=== PATIENT | female | born 1985 | race Caucasian/White ===

== ENCOUNTER 2023-06-01 19:54 | Outpatient (REF) | payer BC, SELFPAY ==
[2023-06-06 10:11] LABS: Age Gdln ACOG Testing Note (.); HPV Aptima Negative (Negative); IGP, Aptima HPV, rfx 16/18,45 Note (.)
== END 2023-06-01 19:55 | disposition home or self-care (01) ==
LOC: LAB 19:54
PROVIDERS: Visit Provider Obstetrics & Gynecology
DX: Z01.419 Encounter for gynecological examination (general) (routine) without abnormal findings (principal)
CPT/HCPCS: 87624; G0145

== ENCOUNTER 2023-10-20 07:50 | Outpatient (OUT) | payer BC, SELFPAY ==
--- OUTSIDE RECORDS SUMMARY | 2023-10-20 07:51 | XMS_ITS | CCD ---
Author Organization [facility] Care Team Providers Care Field Crop Farmworker Name Role Phone Shayne Juarez Unavailable Jared Pretty Unavailable Shayne Juarez Admitting Unavailable Shayne Juarez Attending Klaus Kenny Primary Care Unavailable EDGARDO, DR CASILLAS Primary Care Unavailable LEATHA, DR ELAINE Crockett Attending Unavailable LEATHA, DR ELAINE Crockett Consulting Unavailable LEATHA, DR ELAINE Crockett Admitting Unavailable BRENNAN MERIDA Attending Unavailable Sol Briseno MD Primary Care Provider Medications Current Medications Medication Drug Class(es) Dates Sig (Normalized) Sig (Original) 24 hr metFORMIN hydrochloride 500 mg extended release oral tablet (3 sources) Biguanide Start: 04-05-2023 take 1 tablet by mouth once daily metFORMIN XR (Glucophage-XR) 500 MG 24 hr tablet Indications: Metabolic syndrome TAKE 1 TABLET BY MOUTH EVERY DAY FOR 30 DAYS 90 tablet 4 04/05/2023 Active sarecycline 100 mg oral tablet (4 sources) Seysara 100 MG a s directed Orally for acne Active spironolactone 50 mg oral tablet (4 sources) Aldosterone Antagonist take 1 tablet by mouth every twenty-four hours Spironolactone 50 MG 1 tablet Orally Once a day Active Completed/Discontinued Medications Medication Drug Class(es) Dates Sig (Normalized) Sig (Original) phentermine hydrochloride 37.5 mg oral tablet (7 sources) Sympathomimetic Amine Anorectic Start: 11-12-2022 End: 06-24-2023 take 1 tablet by mouth before mealtime phentermine (Adipex-P) 37.5 MG tablet Indications: Metabolic syndrome Take 1 tablet (37.5 mg) by mouth in the morning. Take before meals. 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] 09-30-2023 Chronic Other nutritional; endocrine; and metabolic disorders (1 source) Abnormal weight gain Episodic Other nutritional; endocrine; and metabolic disorders (1 source) Overweight; Translations: [Overweight] 09-30-2023 Episodic Other nutritional; endocrine; and metabolic disorders (1 source) Overweight; Translations: [Overweight] 09-30-2023 Episodic Other screening for suspected conditions (not mental disorders or infectious disease) (2 sources) Patient encounter status; Translations: [Encounter for screening mammogram for malignant neoplasm of breast] 09-30-2023 Episodic Residual codes; unclassified (4 sources) Difficulty sleeping ; Translations: [Sleep disorder, unspecified] Episodic Residual codes; unclassified (1 source) Sleep disorder, unspecified Episodic Unclassified (1 source) Dietary counseling and surveillance; Translations: [Dietary counseling and surveillance] Onset: 02-19-2022 Past or Other Problems Problem Classification Problem Date Documented Da te Episodic/Chronic Other nutritional; endocrine; and metabolic disorders (3 sources) Metabolic syndrome X; Translations: [Metabolic syndrome] Onset: 05-25-2023 Resolved: 05-25-2023 05-25-2023 Chronic Results Test Name Value Interpretation Reference Range Facil ity IGP,APTIMA HPV,AGE GDLNon AGE GDLN ACOG TESTING Note . [facility] Comment on above: TESTS RESULT FLAG UNITS REF RANGE LAB Clinician Provided Cytology Information Source.............Cervix;Endocervix No. of containers..01 ThinPrep Vial Age Algo ACOG Josefina... 28 FLAG LEGEND: L-Low Normal,H-High Normal,LL-Alert Low,HH-Alert High <-Panic Low,>-Panic High,A-Abnormal,AA-Critical Abnormal Performed at: 01 = [facility] [address] Saundra Crocker MD, HPV APTIMA Negative Negative [facility] Comment on above: This nucleic acid amplification test det ects fourteen high- risk HPV types (16,18,31,33,35,39,45,51,52,56,58,59,66,68) without differentiation. Performed at: = - [facility] [id number] Resizer Operator: Saundra Crocker MD, Phone: [phone] Performed at: [facility] [address] [place] [id number] Resizer Operator: Alfonso Kerns MD, Phone: [phone] IGP, APTIMA HPV, RFX 16/18,45 Note . [facility] Comment on above: TESTS RESULT FLAG UNITS REF RANGE LAB DIAGNOSIS: 02 NEGATIVE FOR INTRAEPITHELIAL LESION OR MALIGNANCY. Specimen adequacy: 02 Satisfactory for evaluation. Endocervical and/or squamous metaplastic cells (endocervical component) are present. Performed by: Danni Tatum, Director Of Math (ASC) . 02 Note: Note 03 The Pap smear is a screening test designed to aid in the detection of premalignant and malignant conditions of the uterine cervix. It is not a diagnostic procedure and should not be used as the sole means of detecting cervical cancer. Both false-positive and false-negative reports do occur. Test Methodology: Note 03 This liquid based ThinPrep(R) pap test was screened with the use of an image guided system. HPV Genotype Reflex Note 02 Criteria not met, HPV Genotype not performed. FLAG LEGEND: L-Low Normal,H-High Normal,LL-Alert Low,HH-Alert High <-Panic Low,>-Panic High,A-Abnormal,AA-Critical Abnormal Performed at: 02 [facility] [address] [place] [address] Alfonso Kerns MD, 03 WB [facility] [address] [address] Saundra Crocker MD, BRUSH-SPATULA CERVIX ENDOCERVIX [facility] Vital Signs Date Time Vital Sign Value Performing Clinician Facility 09-30-2023 09:47-0400 Body height 182.[address] [facility] 09-30-2023 09:47-0400 Body mass index (BMI) [Ratio] 27.6 kg/m2 [facility] 09-30-2023 09:47-0400 Body weight 92.[address] [facility] 09-30-2023 09:47-0400 Diastolic blood pressure 77 mm[Hg] [facility] 09-30-2023 09:47-0400 Heart rate 78 /min [facility] 09-30-2023 09:47-0400 Respiratory rate 12 /min [facility] 09-30-2023 09:47-0400 Systolic blood pressure 117 mm[Hg] [facility] 06-01-2023 13:34-0500 Body weight 88.45 kg Brennan Fuad DO Work Phone: [facility] 06-01-2023 13:34-0500 Diastolic blood pressure 68 mm[Hg] Brennan Fuad DO Work Phone: [facility] 06-01-2023 13:34-0500 Systolic blood pressure 110 mm[Hg] Brennan Fuad DO Work Phone: [facility] 02-19-2022 14:00-0400 Body height 177.8 cm Shayne Juarez Other [facility] Other 02-19-2022 14:00-0400 Body mass index (BMI) [Ratio] 29.97 kg/m2 Shayne Juarez Other [facility] 02-19-2022 14:00-0400 Body weight 94.76 kg Shayne Juarez Other [facility] Other 02-19-2022 14:00-0400 Diastolic blood pressure 84 mm[Hg] Shayne Juarez Other [facility] Other 02-19-2022 14:00-0400 Respiratory rate 18 /min Shayne Juarez Other [facility] Other 02-19-2022 14:00-0400 SaO2% (BldA) [Mass fraction] 98 % Shayne Juarez Other [facility] Other 02-19-2022 14:00-0400 Systolic blood pressure 119 mm[Hg] Shayne Juarez Other [facility] Other Encounters Encounter Date Encounter Type Care Provider Facility Start: 09-30-2023 End: 09-30-2023 ambulatory [facility] Work Phone: Start: 09-30-2023 End: 09-30-2023 Encounter for general adult medical examination without abnormal findings [facility] Start: 09-30-2023 End: 09-30-2023 Patient encounter procedure [facility] Work Phone: Start: 06-01-2023 End: 06-01-2023 ambulatory BRENNAN FUAD Not Available Start: 06-01-2023 [facility] Result Encounter Brennan Fuad DO Work Phone: [facility] Unsolicited Start: 06-01-2023 [facility] Result Encounter Brennan Fuad DO Work Phone: [facility] Unsolicited Start: 06-01-2023 End: 06-01-2023 Patient encounter procedure Brennan Fuad DO Work Phone: [facility] Start: 06-01-2023 End: 06-01-2023 Periodic preventive med est patient 18-39 yrs Brennan Fuad DO Work Phone: [facility] Comment on above: Well woman exam with routine gynecological exam Start: 03-23-2022 End: 03-23-2022 ambulatory Pretty Joset Other [facility] Other Start: 03-23-2022 Telephone encounter Pretty Joseroddy [facility] Start: 03-03-2022 End: 03-03-2022 ambulatory Pretty Garciat Other [facility] Other Start: 03-03-2022 Telephone encounter Pretty [facility] Start: 02-19-2022 End: 02-19-2022 ambulatory Shayne Juarez [facility] Other Start: 02-19-2022 Nutrition therapy Shayne Juarez [facility] Start: 02-17-2022 End: 02-17-2022 ambulatory Pretty Coleman Other [facility] Other Start: 02-17-2022 Encounter by dena Coleman [facility] Start: 10-30-2021 End: 03-13-[address] KLAUS REYNOSO Facility:[facility]1 Procedures Date Procedure Procedure Detail Performing Clinician Start: 06-01-2023 IGP,APTIMA HPV,AGE GDLN Brennan Merida DO Work Phone: Plan of Treatment Date Care Activity Detail Author Start: 01-01-2023 Influenza vaccination Influenza Vacc ine (#1) [facility] Start: 09-24-2013 Screening for malign ant neoplasm of cervix [facility] Start: 09-24-2004 Screening for malign ant neoplasm of cervix Pap Smear [facility] Comprehensive metabo lic 2000 panel - Serum or Plasma [facility] Cytology Cervical or vaginal smear or scraping study Pap Smear Pathology and Cytology Routine Well woman exam with routine gynecological exam Ordered: 06/01/2023 [facility] Work Phone: Comment on above: Ordered: 06/01/2023 Human papilloma viru s DNA [Presence] in Unspecified specimen by Probe with amplification HPV DNA probe, amplified Microbiology Routine Well woman exam with routine gynecological exam Ordered: 06/01/2023 [facility] Comment on above: Ordered: 06/01/2023 MG Breast - bilatera l Screening [facility] Immunizations Immunization Date Immunization Notes Care Provider Tawny rahman 02-24-2007 influenza virus vacc ine, unspecified formulation Brennan Merida DO Work Phone: [facility] Payers Date Payer Category Payer Unknown [id number] 2022 Unknown BCBS BCBS xxxxxx [id number] 2022-Present [phone] [address] [place] [address] [id number] 2022 Unknown [id number] 1985 Unknown [id number] 1985 Unknown [id number] 1961 Self-pay Unknown [id number] Social History Date Type Detail Facility Unknown if ever smoked [facility] Other Sex Assigned At Sex Assigned At Bir th [facility] Other Tobacco smoking stat [facility] Tobacco smoking consumption unknown [facility] Start: 1985 Sex Assigned At Female [facility] Start: 05-31-2023 Gender identity Identifies as female gender (finding) [facility] Start: 05-31-2023 Sexual orientation Heterosexual (finding) [facility] History of Present illness Narrative 06-01-2023 Rosy Santana LPN - 06/01/2023 1:00 PM EST Note Date & Type Note Facility 06-01-2023 History of Presen t illness Narrative Reason for Appointment: Patient ID: Marge Enriquez is a 37 y.o. female who presents for Gynecologic Exam Patient presents today for Annual Exam appointment. Current Medications: has a current medication list which includes the following prescription(s): metformin xr and phentermine. Medical History: Active Ambulatory Problems Diagnosis Date Noted No Active Ambulatory Problems Resolved Ambulatory Problems Diagnosis Date Noted Metabolic syndrome 05/25/2023 Past Medical History: Diagnosis Date Seasonal allergies No family history on file. Social History Tobacco Use Smoking status: Not on file Smokeless tobacco: Not on file Substance Use Topics Alcohol use: Not on file Drug use: Not on file Past Surgical History: Procedure Laterality Date SECTION, LOW TRANSVERSE SECTION, LOW TRANSVERSE SECTION, LOW TRANSVERSE TUBAL LIGATION No Known Allergies Review of Systems: Review of Systems Constitutional: Negative. HENT: Negative. Eyes: Negative. Respiratory: Negative. Cardiovascular: Negative. Gastrointestinal: Negative. Genitourinary: Negative. Musculoskeletal: Negative. Skin: Negative. Neurological: Negative. All other systems reviewed and are negative. Hematological: Negative. Endocrine: Negative. Allergic/Immunologic: Negative. Objective Physical Exam Constitutional: Appearance: Normal appearance. She is well-developed. Genitourinary: Vulva normal. Breasts: Breasts are soft. Right: Normal. Left: Normal. Cardiovascular: Rate and Rhythm: Normal rate and regular rhythm. Pulmonary: Effort: Pulmonary effort is normal. Breath sounds: Normal breath sounds. Abdominal: General: Bowel sounds are normal. There is no distension. Palpations: Abdomen is soft. Tenderness: There is no abdominal tenderness. There is no guarding or rebound. Musculoskeletal: General: No swelling. Normal range of motion. Right lower leg: No edema. Left lower leg: No edema. Neurological: Mental Status: She is alert and oriented to person, place, and time. Skin: General: Skin is warm and dry. Psychiatric: Mood and Affect: Mood normal. Behavior: Behavior normal. Vitals and nursing note reviewed. Exam conducted with a exhaust and muffler fitter present. Vitals: There is no height or weight on file to calculate BMI. BP: 110/68 Patient's last menstrual period was 05/19/2023. Assessment/Plan Encounter Diagnosis Name Primary? Well woman exam with routine gynecological exam Pt presents for annual exam. Pt doing well with no complaints. Pap obtained without difficulty. Pt to return in one year for annual unless needed sooner. Documented by Rosy Santana LPN on behalf of: Brennan Merida DO documented in this encounter [facility] Evaluation note 02-19-2022 Note Date & Type Note Facility 02-19-2022 Evaluation note Encounter Date Diagnosis Assessment Notes Jan, Abnormal weight gain (ICD-10 - R63.5) Jan, GERD (gastroesophagea l reflux disease) (ICD-10 - K21.9) Jan, Sleep difficulties (ICD-10 - G47.9) [facility] Other Evaluation note Note Date & Type Note Facility Evaluation note No Information [facility] Other Evaluation note Note Date & Type Note Facility Evaluation note Diagnosis Well woman exam with routine gynecological exam Routine gynecological examination documented in this encounter [facility] Evaluation note Note Date & Type Note Facility Evaluation note Diagnosis Onset Date Bruxism, sleep-related acute Overweight acute Screening mammogram for breast cancer acute Wellness examination noneact flaca [facility] Work Phone: History general Narrative - Reported Note Date & Type Note Facility History general Narrative - Reported Type Surgical History C section x3 Hospitalization History see above [facility] Other Summary Purpose Family History Relationship Condition Age at Onset Recorded Date/T eleanor father Diabetes mellitus Unknown Hypertension Unknown Not Specified Hypertension Unknown Advance Directives Advance Directive Response Recorded Date/ Time Advance Directives No September 06, 2023 1:26pm Chief Complaint and Reason for Visit Chief Complaint left ear jaw pain Reason for Visit Bruxism, sleep-relat ed Overweight Screening mammogram for breast cancer Wellness examination Additional Source Comments REASON FOR VISIT (unrecogniz ed section and content) Reason Comments Gynecologic Exam INFORMATION SOURCE (unrecogn ized section and content) DATE CREATED AUTHOR 03/09/[address] [facility] DATE CREATED AUTHOR AUTHOR'S ORGANIZ ATION 03/13/2022 [facility] DATE CREATED AUTHOR AUTHOR'S ORGANIZ ATION 06/02/2023 [facility] Specialists EPIC Care Teams (unrecognized sec tion and content) Field Crop Farmworker Relationship Specialty Start Date End Date Sol Briseno MD [address] [place] [id number] PCP - General Family Medicine 06/01/23 Field Crop Farmworker Relationship Specialty Start Date End Date Sol Briseno MD [address] [place] [address] PCP - General Family Medicine 06/01/23 Team Status: Active Member Role Status Dates Klaus Reynoso DO Primary Care Provider Active Team Status: Inactive Member Role Status Dates Klaus Reynoso DO Primary Care Provide r, Attending Provider Active Start: September 30, 2023 End: September 30, 2023 Goals (unrecognized section and content) Goals may be documented in a n alternate section FOR RECORDS PERTAINING TO PATIENTS WHO ARE OR HAVE BEEN ENROLLED IN A CHEMICAL DEPENDENCY/SUBSTANCEABUSE PROGRAM, SOME INFORMATION MAY BE OMITTED. This clinical summary was aggregated from multiple sources. Caution should be exercised in using it in the provision of clinical care. This summary normalizes information from multiple sources, and as a consequence, information in this document may materially change the coding, format and clinical context of patient data. In addition, data may be omitted in some cases. CLINICAL DECISIONS SHOULD BE BASED ON THE PRIMARY CLINICAL RECORDS. [facility] [employer] [facility]. provides no warranty or guarantee of the accuracy or completeness of information in this document.
--- NOTE | 2023-10-20 07:53 | MM_ITS ---
Patient Name: ROSINA LAWRENCE MR#: [id number] : 1985 Exam Date: 10/20/2023 Ordering Doctor: DR Klaus Wick D.O. RADIOLOGY REPORT PROCEDURE: MM TOMOSYNTHESIS SCREENING BI COMPARISON: MG MAMM SCREEN ORLY W CAD, 03/09/2019. INDICATIONS: Screening Calculator Name NCI Breast Cancer Risk Assessment Tool 5 Year Breast Cancer Risk Not Reported. Lifetime Breast Cancer Risk Not Reported. Personal Breast Cancer No Personal Ovarian Cancer No Treatments None Family Cancers None LOCATION: [facility] BREAST COMPOSITION: The breasts are extremely dense, which lowers the sensitivity of mammography. FINDINGS: DIAGNOSTIC CATEGORY 1--NEGATIVE. RIGHT BREAST: No significant suspicious finding. No significant change has occurred. LEFT BREAST: No significant suspicious finding. No significant change has occurred. RECOMMENDATIONS: ROUTINE MAMMOGRAM AND CLINICAL EVALUATION IN 12 MONTHS. PLEASE NOTE: A NORMAL MAMMOGRAM DOES NOT EXCLUDE THE POSSIBILITY OF BREAST CANCER. A CLINICALLY SUSPICIOUS PALPABLE LUMP SHOULD BE BIOPSIED. Dictated by: Albaro Poe M.D. on 10/21/2023 at 09:02 Approved by: Albaro Poe M.D. on 10/21/2023 at 09:06
[2023-10-20 08:32] LABS: Basophils Absolute Auto 0.1 10^3/uL (0.0-0.1); Eosinophils Absolute Auto 0.1 10^3/uL (0.0-0.7); Hematocrit 41.6 % (36.0-48.0); Hemoglobin 13.6 g/dL (12.0-16.0); Lymphocytes Absolute Auto 1.3 10^3/uL (1.2-3.8); Lymphocytes Percent Auto 24.3 % (20.5-60.0); Mean Corpuscular HGB Conc 32.7 g/dL (29.9-35.2); Mean Corpuscular Hemoglobin 29.8 pg (26.7-34.0); Mean Corpuscular Volume 91.2 fL (81.0-99.0); Mean Platelet Volume 10.1 fL (9.5-13.5); Monocytes Absolute Auto 0.5 10^3/uL (0.3-0.8); Monocytes Percent Auto 8.9 % (1.7-12.0); Neutrophils Absolute Auto 3.3 10^3/uL (1.4-6.5); Neutrophils Percent Auto 64.8 % (43.0-75.0); Platelet Count 213 10^3/uL (150-450); Red Blood Count 4.56 10^6/uL (4.20-5.40); Red Cell Distribution Width 12.9 % (11.0-15.0); White Blood Count 5.2 10^3/uL (4.0-11.0)
[2023-10-20 08:56] LABS: Estimated Average Glucose 100 mg/dL; Glycohemoglobin A1C 5.1 % (4.5-6.2)
[2023-10-20 09:22] LABS: Alanine Aminotransferase 21 U/L (14-59); Albumin Globulin Ratio 1.1; Albumin Level 3.7 g/dL (3.4-5.0); Alkaline Phosphatase 41 U/L (46-116); Anion Gap 10.3; Aspartate Amino Transferase 13 U/L (15-37); BUN Creatinine Ratio 10.7; Bilirubin Total 0.9 mg/dL (0.2-1.0); Calcium 8.5 mg/dL (8.5-10.1); Carbon Dioxide 29.6 mmol/L (21.0-32.0); Chloride 103 mmol/L (98-107); Chol HDL Ratio 1.4; Cholesterol 137 mg/dL (<=200); Estimated GFR (African America >60 (>=60); Estimated GFR (Non-African Ame >60 (>=60); Globulin 3.4 g/dL; Glucose 89 mg/dL (74-106); HDL Cholesterol 101 mg/dL (40-60); Potassium 3.9 mmol/L (3.5-5.1); Sodium 139 mmol/L (136-145); Thyroid Stimulating Hormone 0.838 uIU/mL (0.358-3.740); Total Protein 7.1 g/dL (6.4-8.2); Triglycerides 44 mg/dL (<=150); VLDL CHOLESTEROL 8.8 mg/dL
== END 2023-10-20 07:51 | disposition home or self-care (01) ==
LOC: MAMMO 07:50
PROVIDERS: PCP Internal Medicine; Visit Provider Internal Medicine
DX: Z00.00 Encounter for general adult medical examination without abnormal findings (principal); Z12.31 Encounter for screening mammogram for malignant neoplasm of breast
CPT/HCPCS: 36415; 77063; 77067; 80053; 80061; 83036; 84443; 85025

== ENCOUNTER 2024-11-29 07:58 | Outpatient (OUT) | payer BC, SELFPAY ==
--- NOTE | 2024-11-29 08:00 | MM_ITS ---
Patient Name: ROSINA LAWRENCE MR#: [id number] : 1985 Exam Date: 11/29/2024 Ordering Doctor: DR BRENNAN LENNON . RADIOLOGY REPORT PROCEDURE: MM TOMOSYNTHESIS SCREENING BI COMPARISON: MM TOMOSYNTHESIS SCREENING BI, 10/20/2023. MG MAMM SCREEN ORLY W CAD, 03/09/2019. INDICATIONS: screening for malignant neoplasm of breast Calculator Name NCI Breast Cancer Risk Assessment Tool 5 Year Breast Cancer Risk Not Reported. Lifetime Breast Cancer Risk Not Reported. Personal Breast Cancer No Personal Ovarian Cancer No Treatments None Family Cancers None LOCATION: [facility] BREAST COMPOSITION: The breasts are heterogeneously dense, which may obscure small masses. FINDINGS: DIAGNOSTIC CATEGORY 1--NEGATIVE. RIGHT BREAST: No significant suspicious finding. LEFT BREAST: No significant suspicious finding. RECOMMENDATIONS: ROUTINE MAMMOGRAM AND CLINICAL EVALUATION IN 12 MONTHS. PLEASE NOTE: A NORMAL MAMMOGRAM DOES NOT EXCLUDE THE POSSIBILITY OF BREAST CANCER. A CLINICALLY SUSPICIOUS PALPABLE LUMP SHOULD BE BIOPSIED. Dictated by: Antolin Navarro DO on 11/29/2024 at 16:05 Approved by: Antolin Navarro DO on 11/29/2024 at 16:16
--- OUTSIDE RECORDS SUMMARY | 2024-11-29 08:00 | XMS_ITS | Patient Health Record ---
Author Organization [facility] Address [address] [place] [address] Care Team Providers Care Flat Screen Worker Name Role Phone Albaro Wilson Unavailable [phone] Allergies No Known Allergies Reason For Referral No Information Medications Medication SIG (Take, Route, Frequency, Duration) Notes Start Date End Date Status Tylenol Active ZyrTEC Active Motrin IB Active Social History Tobacco Use: Social History Observation Description Date Details (start date - stop date) Never Smoker NA - NA AUDIT-C (Standard) Question Answer Notes Did you have a drink contain ing alcohol in the past year? Yes How often did you have a dri nk containing alcohol in the past year? Monthly or less (1 point) How many drinks did you have on a typical day when you were drinking in the past year? 1 or 2 drinks (0 point) How often did you have six o r more drinks on one occasion in the past year? 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 She will continue symptomatic treatment with [id number] NSAIDs. She will follow-up here on an as-needed basis. Import medication Plan Of Treatment Pending Test Test Name Order Date SCC- HIP W/ PELVIS, LEFT [id number] 5 Insurance Providers Payer Name Payer Address Payer Phone Subscriber Number Group Number Insured Name Patient Relationship to Insured Coverage Start Date Coverage End Date [facility] [address] [place] [address] [id number] ROSINA LAWRENCE Self - patient is the insured 5 Medical (General) History Medical History History ICD Code Asthma/COPD: yes Healthcare worker Surgical History Surgery Date(Month/Year) Colonoscopy 03/2019 C section x 3 07/2007, 04/2010, 07/02 016
--- OUTSIDE RECORDS SUMMARY | 2024-11-29 08:00 | XMS_ITS | Clinical Summary ---
Author Organization [facility] Address [address] [place] [address] Care Team Providers Care Surgical Assistant Name Role Phone Sol Briseno MD Primary Care Provider [phone] Allergies No known active allergies Medications metFORMIN XR (Glucophage-XR) 500 MG 24 hr tabletIndication s:Metabolic syndrome TAKE 1 TABLET BY MOUTH EVERY DAY FOR 30 DAYS 90 tablet 4 04/05/2023 Active phentermine (Adipex-P) 37.5 MG tabletIndication s:Metabolic syndrome,Encount er for weight management Take 1 tablet (37.5 mg) by mouth in the morning. Take before meals. 30 tablet 05/25/2023 Active Resolved Problems Problem Noted Date Diagnosed Date Resolved Date Metabolic syndrome 05/25/2023 Social History Tobacco Use Types Packs/Day Years Used Date Smoking Tobacco: Never Assessed Comments Unknown Sex and Gender Information Value Date Recorded Sex Assigned at Female 05/31/2023 10:43 PM EST Legal Sex Female 6:54 PM EDT Gender Identity Female 05/31/2023 10:43 PM EST Sexual Orientation Straight 05/31/2023 10 :43 PM EST Last Filed Vital Signs Vital Sign Reading Time Taken Comments Blood Pressure 110/68 06/01/2023 1:34 PM EST Pulse - - Temperature - - Respiratory Rate - - Oxygen Saturation - - Inhaled Oxygen Concentration - - Weight 88.5 kg (195 lb) 06/01/2023 1:34 PM EST Height - - Body Mass Index - - Plan of Treatment Health Maintenance Due Date Last Done Comments Pap Smear 09/24/2004 Cervical Cancer Screening 09/24/2013 HPV/Cotest 09/24/2013 Mammogram 2023 Influenza Vaccine (#1) 2025 02/24/2007 Insurance BCBS Care Teams Surgical Assistant Relationship Specialty Start Date End Date Sol Briseno MD PCP - General Family Medicine 06/01/23
--- OUTSIDE RECORDS SUMMARY | 2024-11-29 08:00 | XMS_ITS | Clinical Summary ---
Author Organization [employer] [facility] Address [id number] [place] [address] Care Team Providers Care Spiral Machine Operator Name Role Phone Klaus Wick DO Primary Care Provider [phone] Allergies No known active allergies Medications Lactobac no.41/Bifidobac t no.7 (PROBIOTIC-10 ORAL) Take by mouth daily. Active herbal complex no.205 (TOTAL BODY CLEANSE ORAL) Take by mouth as needed. Active phentermine (ADIPEX-P) 37.5 mg tablet Take 37.5 mg by mouth every morning before breakfast. Active Active Problems No known active problems Family History Medical History Relation Name Comments Diabetes Father Hypertension Father Testicular cancer Maternal Grandfather Hypertension Mother Relation Name Status Comments Father Alive Maternal Grandfather Alive Mother Alive Social History Tobacco Use Types Packs/Day Years Used Date Smoking Tobacco: Never Smokeless Tobacco: Never Alcohol Use Standard Drinks/Week Comments Yes 0 (1 standard drink = 0.6 oz pur e alcohol) SOCIAL Childcare Answer Date Recorded Childcare Unknown 10/12/2018 Employment Answer Date Recorded Employment Unknown 10/12/2018 Purpose - Life Answer Date Recorded Purpose and direction in life Unknown Comments Unknown Sex and Gender Information Value Date Recorded Sex Assigned at Not on file Legal Sex Female 11:23 AM EDT Gender Identity Not on file Sexual Orientation Not on file Last Filed Vital Signs Vital Sign Reading Time Taken Comments Blood Pressure 124/84 04/01/2018 8:51 AM EST Pulse - - Temperature - - Respiratory Rate - - Oxygen Saturation - - Inhaled Oxygen Concentration - - Weight 91.6 kg (202 lb) 04/01/2018 8:51 AM EST Height 182.9 cm (6') 04/01/2018 8:51 AM EST Body Mass Index 27.4 04/01/2018 8:51 AM EST Plan of Treatment Health Maintenance Due Date Last Done Comments Depression Screening 1995 Tobacco Screening 1995 Adult BMI Screening 09/24/2001 DTaP,Tdap and Td Vaccines (1 - Tdap) 09/24/2002 Pap Smear 09/24/2004 Influenza Vaccine 01/01/2025 Medical Devices Not on file Insurance [employer] Care Teams Spiral Machine Operator Relationship Specialty Start Date End Date Klaus Wick DO [address] [place] [address] PCP - General 02/09/18
--- OUTSIDE RECORDS SUMMARY | 2024-11-29 08:02 | XMS_ITS | CCD ---
Author Organization [facility] Care Team Providers Care Biology Specimen Technician Name Role Phone Shayne Juarez Unavailable Jared Pretty Unavailable Shyane Juarez Admitting Unavailable Shayne Juarez Attending Klaus Kenny Primary Care Unavailable EDGARDO, DR CASILLAS Primary Care Unavailable LEATHA, DR ELAINE Crockett Attending Unavailable LEATHA, DR ELAINE Crockett Consulting Unavailable LEATHA, DR ELAINE Crockett Admitting Unavailable BRENNAN MERIDA Attending Unavailable Sol Briseno MD Primary Care Provider [phone] Medications Current Medications Medication Drug Class(es) Dates [...] Low,>-Panic High,A-Abnormal,AA-Critical Abnormal Performed at: 01 = [facility] [address] Saundra Crocker MD, HPV APTIMA Negative Negative [facility] Comment on above: This nucleic acid amplification test det ects fourteen high- risk HPV types (16,18,31,33,35,39,45,51,52,56,58,59,66,68) without differentiation. Performed at: = - [facility] [id number] Folder Seamer Automatic: Saundra Crocker MD, Phone: [phone] Performed at: [facility] [address] [place] [id number] Folder Seamer Automatic: Alfonso Kerns MD, Phone: [phone] IGP, APTIMA HPV, RFX 16/18,[address] . [facility] Comment on above: TESTS RESULT FLAG UNITS REF RANGE LAB DIAGNOSIS: 02 NEGATIVE FOR INTRAEPITHELIAL LESION OR MALIGNANCY. Specimen adequacy: 02 Satisfactory for evaluation. Endocervical and/or squamous metaplastic cells (endocervical component) are present. Performed by: Danni Tatum, Live [employer] (ASC) . 02 Note: Note 03 The [...] High,A-Abnormal,AA-Critical Abnormal Performed at: 02 [facility] [address] [place] [address] Alfonso Kerns MD, 03 WB [facility] [address] [address] Saundra Crocker MD, BRUSH-SPATULA [facility]IX [facility] Vital Signs Date Time Vital Sign Value Performing Clinician Facility 09-30-2023 09:47-0400 Body height 182.88 cm [facility] 09-30-2023 09:47-0400 Body mass index (BMI) [Ratio] 27.6 kg/m2 [facility] 09-30-2023 09:47-0400 Body weight 92.58 kg [facility] 09-30-2023 09:47-0400 Diastolic blood pressure 77 mm[Hg] [facility] 09-30-2023 09:47-0400 Heart rate 78 /min [facility] 09-30-2023 09:47-0400 Respiratory rate 12 /min [facility] 09-30-2023 09:47-0400 Systolic blood pressure 117 mm[Hg] [facility] 06-01-2023 13:34-0500 Body weight 88.45 kg Brennan Fuad DO Work Phone: [facility] 06-01-2023 13:34-0500 Diastolic blood pressure 68 mm[Hg] Brennan Fuad DO Work Phone: [facility] 06-01-2023 13:34-0500 Systolic blood pressure 110 mm[Hg] Brennan Fuad DO Work Phone: [facility] 02-19-2022 14:00-0400 Body height 177.8 cm Shayne Juarez Other [facility] Other 02-19-2022 14:00-0400 Body mass index (BMI) [Ratio] 29.97 kg/m2 Shayne Juarez Other [facility] Other 02-19-2022 14:00-0400 Body weight 94.76 kg Shayne Juarez Other [facility] Other 02-19-2022 14:00-0400 Diastolic blood pressure 84 mm[Hg] Shayne Juarez Other [facility] Other 02-19-2022 14:00-0400 Respiratory rate 18 /min Shayne Juarez Other [facility] Other 02-19-2022 14:00-0400 SaO2% (BldA) [Mass fraction] 98 % Shayne Juarez Other [facility] Other 02-19-2022 14:00-0400 Systolic blood pressure 119 mm[Hg] Shayne Juarez Other [facility] Other Encounters Encounter Date Encounter Type Care Provider Facility Start: 09-30-2023 End: 09-30-2023 ambulatory [facility] Work Phone: Start: 09-30-2023 End: 09-30-2023 Encounter for general adult medical examination without abnormal findings [facility] Start: 09-30-2023 End: 09-30-2023 Patient encounter procedure [facility] Physician [facility] Work Phone: Start: 06-01-2023 End: [...] 03-23-2022 End: 03-23-2022 ambulatory Pretty Joset Other [facility] Other Start: 03-23-2022 Telephone encounter Pretty Joseroddy Alyssa [facility] Start: 03-03-2022 End: 03-03-2022 ambulatory Pretty Garciat Other [facility] Other Start: 03-03-2022 Telephone encounter Pretty Shah [facility] Start: 02-19-2022 End: 02-19-2022 ambulatory Shayne Juarez [facility] Other Start: 02-19-2022 Nutrition therapy Shayne Juarez [facility] Start: 02-17-2022 End: 02-17-2022 ambulatory Pretty Coleman Other [facility] Other Start: 02-17-2022 Encounter by dena Coleman [facility] Start: 10-30-2021 End: 03-13-[address] KLAUS REYNOSO Facility:[facility]1 Procedures Date Procedure Procedure Detail Performing Clinician Start: 06-01-2023 IGP,APTIMA HPV,AGE GDLN Brennan Merida DO Work Phone: Plan of Treatment Date Care Activity Detail Author Start: 01-01-2023 Influenza vaccination Influenza Vacc ine (#1) [facility] Start: 09-24-2013 Screening for malign ant neoplasm of cervix [facility] Start: 09-24-2004 Screening for malign ant neoplasm of cervix Pap Smear [facility] Comprehensive metabo lic 2000 panel - Serum or Plasma [facility] Cytology Cervical or vaginal smear or scraping study Pap Smear Pathology and Cytology Routine Well woman exam with routine gynecological exam Ordered: 06/01/[address] [facility] Work Phone: Comment on above: Ordered: 06/01/2023 Human papilloma viru s DNA [Presence] in Unspecified specimen by Probe with amplification HPV DNA probe, amplified Microbiology Routine Well woman exam with routine gynecological exam Ordered: 06/01/[address] [facility] Comment on above: Ordered: 06/01/2023 MG Breast - bilatera l Screening [facility] Immunizations Immunization Date Immunization Notes Care Provider Tawny rahman 02-24-2007 influenza virus vacc ine, unspecified formulation Brennan Merida DO Work Phone: [facility] Payers Date Payer Category Payer Unknown [id number] 2022 Unknown BCBS BCBS [id number] 2022-Present [phone] [address] [place] [address] [id number] 2022 Unknown [id number] 1985 Unknown [id number] 1985 Unknown [id number] 1961 Self-pay Unknown [id number] Social History Date Type Detail Facility Unknown if ever smoked [facility] Other Sex Assigned At Sex Assigned At Bir th [facility] Other Tobacco smoking stat [facility] Tobacco smoking consumption unknown [facility] Start: 1985 Sex Assigned At Female [facility] Start: 05-31-2023 Gender identity Identifies as female gender (finding) [facility] Start: 05-31-2023 Sexual orientation Heterosexual (finding) [facility] History of Present illness Narrative 06-01-2023 [...] nursing note reviewed. Exam conducted with a adhesive primer present. Vitals: There is no height or [...] Brennan Merida DO documented in this encounter [facility] Evaluation note 02-19-2022 Note Date & Type Note Facility 02-19-2022 Evaluation note Encounter Date Diagnosis Assessment Notes Jan, Abnormal weight gain (ICD-10 - R63.5) Jan, GERD (gastroesophagea l reflux disease) (ICD-10 - K21.9) Jan, Sleep difficulties (ICD-10 - G47.9) [facility] Other Evaluation note Note Date & Type Note Facility Evaluation note No Information [facility] Other Evaluation note Note Date & Type Note Facility Evaluation note Diagnosis Well woman exam with routine gynecological exam Routine gynecological examination documented in this encounter [facility] Evaluation note Note Date & Type Note Facility Evaluation note Diagnosis Onset Date Bruxism, sleep-related acute Overweight acute Screening mammogram for breast cancer acute Wellness examination noneact flaca [facility] Work Phone: History general Narrative - Reported Note Date & Type Note Facility History general Narrative - Reported Type Surgical History C section x3 Hospitalization History see above [facility] Other Summary Purpose Family History Relationship Condition [...] section and content) DATE CREATED AUTHOR 03/09/2022 [facility] DATE CREATED AUTHOR AUTHOR'S ORGANIZ ATION 03/13/2022 [facility] DATE CREATED AUTHOR AUTHOR'S ORGANIZ ATION 06/02/2023 [facility] [employer] Care Teams (unrecognized sec tion and content) Biology Specimen Technician Relationship Specialty Start Date End Date Sol Briseno MD [address] [place] [phone] PCP - General Family Medicine 06/01/23 Biology Specimen Technician Relationship Specialty Start Date End Date Sol Briseno MD [address] [place] [address] PCP - General Family Medicine 06/01/23 Team [...] BE BASED ON THE PRIMARY CLINICAL RECORDS. [facility] [address] [facility]. provides no warranty or guarantee of the accuracy or completeness of information in this document.
== END 2024-11-29 07:59 | disposition home or self-care (01) ==
LOC: MAMMO 07:58
PROVIDERS: PCP Internal Medicine; Visit Provider Obstetrics & Gynecology
DX: Z12.31 Encounter for screening mammogram for malignant neoplasm of breast (principal)
CPT/HCPCS: 77063; 77067

== ENCOUNTER 2025-03-01 08:38 | Outpatient (OUT) | payer BC, SELFPAY ==
--- OUTSIDE RECORDS SUMMARY | 2025-03-01 08:42 | XMS_ITS | CCD ---
Author Organization [facility] Inform ion [facility] Care Team Providers Care Airplane Cleaner Name Role Phone Shayne Juarez Unavailable Jared Pretty Unavailable Shayne Juarez Admitting Unavailable Shayne Juarez Attending Klaus Kenny Primary Care Unavailable EDGARDO, DR CASILLAS Primary Care Unavailable LEATHA, DR ELAINE Crockett Attending Unavailable LEATHA, DR ELAINE Crockett Consulting Unavailable LEATHA, DR ELAINE Crockett Admitting Unavailable BRENNAN MERIDA Attending Unavailable Sol Briseno MD Primary Care Provider Sol Briseno MD Primary Care Provider Medications Current Medications MedicationDrug Class(es)DatesSig (Normalized)Sig (Original)24 hr metFORMIN hydrochloride 500 mg extended release oral tablet (4 sources)BiguanideStart: 29-61-6000uvtc 1 tablet by mouth once dailymetFORMIN XR (Glucophage-XR) 500 MG 24 hr tablet Indications: Metabolic syndrome TAKE 1 TABLET BY MOUTH EVERY DAY FOR 30 DAYS 90 tablet 4 04/05/2023 Activephentermine hydrochloride 37.5 mg oral tablet (8 sources)Sympathomimetic Amine AnorecticStart: 11-12-2022 End: 74-72-5471irwr 1 tablet by mouth before mealtimephentermine (Adipex-P) 37.5 MG tablet Indications: Metabolic syndrome , Encounter for weight management Take 1 tablet (37.5 mg) by mouth in the morning. Take before meals. 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]09-30-2023 ChronicOther nervous system disorders (1 source)Sleep related bruxism; 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]09-30-2023 ChronicOther nutritional; endocrine; and metabolic disorders (1 source)Abnormal weight gainEpisodicOther nutritional; endocrine; and metabolic disorders (1 source)Overweight; Translations: [Overweight]38-87-1742KgykqtxaOzucp nutritional; endocrine; and metabolic disorders (1 source)Overweight; Translations: [Overweight]67-52-4182JvkplespCjvtx screening for suspected conditions (not mental disorders or infectious disease) (2 sources)Patient encounter status; Translations: [Encounter for screening mammogram for malignant neoplasm of breast]27-97-6233QczrupplCcspmzlp codes; unclassified (4 sources)Difficulty sleeping ; Translations: [Sleep disorder, unspecified] EpisodicResidual codes; unclassified (1 source)Sleep disorder, unspecifiedEpisodicUnclassified (1 source)Dietary counseling and surveillance; Translations: [Dietary counseling and surveillance]Onset: 02-19-2022 Past or Other Problems Problem ClassificationProblemDateDocumented DateEpisodic/ChronicOther nutritional; endocrine; and metabolic disorders (4 sources)Metabolic syndrome X; Translations: [Metabolic syndrome]Onset: 05-25-2023 Resolved: hronic Results Test NameValueInterpretationReference RangeFacilityMM TOMOSYNTHESIS SCREENING BI on 13[place] [address] Mammography Report Signed Patient: ROSINA ENRIQUEZ MR#: [id number] : 1985 Acct:[id number] Age/Sex: 39 / F ADM Date: 11/29/24 Loc: MAMMO Attending Dr: Brennan Merida D.O. Ordering Physician: Brennan Merida D.O. Results: Date of Service: 11/29/24 Follow Up: Procedure(s): MM tomosynthesis screening BI Accession Number(s): [id number] cc: Klaus Wick D.O.; Brennan Merida D.O. Patient Name: ROSINA ENRIQUEZ MR#: [id number] : 1985 Exam Date: 11/29/2024 Ordering Doctor: DR BRENNAN MERIDA . RADIOLOGY REPORT PROCEDURE: MM TOMOSYNTHESIS SCREENING BI COMPARISON: MM TOMOSYNTHESIS SCREENING BI, 10/20/2023. MG MAMM SCREEN ORLY W CAD, 03/09/2019. INDICATIONS: screening for malignant neoplasm of breast Calculator Name NCI Breast Cancer Risk Assessment Tool 5 Year Breast Cancer Risk Not Reported. Lifetime Breast Cancer Risk Not Reported. Personal Breast Cancer No Personal Ovarian Cancer No Treatments None Family Cancers None LOCATION: [facility] [place] BREAST COMPOSITION: The breasts are heterogeneously dense, which may obscure small masses. FINDINGS: DIAGNOSTIC CATEGORY 1--NEGATIVE. RIGHT BREAST: No significant suspicious finding. LEFT BREAST: No significant suspicious finding. RECOMMENDATIONS: ROUTINE MAMMOGRAM AND CLINICAL EVALUATION IN 12 MONTHS. PLEASE NOTE: A NORMAL MAMMOGRAM DOES NOT EXCLUDE THE POSSIBILITY OF BREAST CANCER. A CLINICALLY SUSPICIOUS PALPABLE LUMP SHOULD BE BIOPSIED. Dictated by: Antolin Navarro DO on 11/29/2024 at 16:05 Approved by: Antolin Navarro DO on 11/29/2024 at 16:16 Dictated By: Antolin Navarro M.D. Signed By: 11/29/24 1618 DD/ 1617 TD/TT: Dental Amalgam Processor:TBHRadiology, Radiologist, MD - 11/29/2024 [place] [address] Mammography Report Signed Patient: ROSINA ENRIQUEZ MR#: [id number] : 1985 Acct:[id number] Age/Sex: 39 / F ADM Date: 11/29/24 Loc: MAMMO Attending Dr: Brennan Merida D.O. Ordering Physician: Brennan Merida D.O. Results: Date of Service: 11/29/24 Follow Up: Procedure(s): MM tomosynthesis screening BI Accession Number(s): [id number] cc: Klaus Wick D.O.; Brennan Merida D.O. Patient Name: ROSINA ENRIQUEZ MR#: [id number] : 1985 Exam Date: 11/29/2024 Ordering Doctor: DR BRENNAN MERIDA . RADIOLOGY REPORT PROCEDURE: MM TOMOSYNTHESIS SCREENING BI COMPARISON: MM TOMOSYNTHESIS SCREENING BI, 10/20/2023. MG MAMM SCREEN ORLY W CAD, 03/09/2019. INDICATIONS: screening for malignant neoplasm of breast Calculator Name NCI Breast Cancer Risk Assessment Tool 5 Year Breast Cancer Risk Not Reported. Lifetime Breast Cancer Risk Not Reported. Personal Breast Cancer No Personal Ovarian Cancer No Treatments None Family Cancers None LOCATION: [facility] [place] BREAST COMPOSITION: The breasts are heterogeneously dense, which may obscure small masses. FINDINGS: DIAGNOSTIC CATEGORY 1--NEGATIVE. RIGHT BREAST: No significant suspicious finding. LEFT BREAST: No significant suspicious finding. RECOMMENDATIONS: ROUTINE MAMMOGRAM AND CLINICAL EVALUATION IN 12 MONTHS. PLEASE NOTE: A NORMAL MAMMOGRAM DOES NOT EXCLUDE THE POSSIBILITY OF BREAST CANCER. A CLINICALLY SUSPICIOUS PALPABLE LUMP SHOULD BE BIOPSIED. Dictated by: Antolin Navarro DO on 11/29/2024 at 16:05 Approved by: Antolin Navarro DO on 11/29/2024 at 16:16 Dictated By: Antolin Navarro M.D. Signed By: 11/29/248 DD/ 16 TD/TT: Dental Amalgam Processor: [facility] LouisRadiology Study observation (narrative)[facility] TOMOSYNTHESIS SCREENING BIOrdered By: Radiologist Radiology on 97-10-5513[facility] Work Phone: IGP,APTIMA HPV,AGE GDLNon 81-55-6186TPE GDLN ACOG TESTINGNote.[facility] St. LouisComment on above:TESTS RESULT FLAG UNITS REF RANGE LAB Clinician Provided Cytology Information Source.............Cervix;Endocervix No. of containers..01 ThinPrep Vial Age Jazmin Rocha... 28 FLAG LEGEND: L-Low Normal,H-High Normal,LL-Alert Low,HH-Alert High <-Panic Low,>-Panic High,A-Abnormal,AA-Critical Abnormal Performed at: 01 =[address] [address] Saundra Crocker MD, HPV APTIMANegativeNegativeNOMS HealthcareComment on above:This nucleic acid amplification test detects fourteen high- risk HPV types (16,18,31,33,35,39,45,51,52,56,58,59,66,68) without differentiation. Performed at: =[address] [id number] Fac Engineer: Saundra Crocker MD, Phone: [phone] Performed at: [facility] Cyto Hist[address] [place] [id number] Fac Engineer: Alfonso Kerns MD, Phone: [phone] IGP, APTIMA HPV, RFX 16/18,45Note.NOMS HealthcareComment on above:TESTS RESULT FLAG UNITS REF RANGE LAB DIAGNOSIS: 02 NEGATIVE FOR INTRAEPITHELIAL LESION OR MALIGNANCY. Specimen adequacy: 02 Satisfactory for evaluation. Endocervical and/or squamous metaplastic cells (endocervical component) are present. Performed by: 02 Susan C Wilt, Charge Entry Clerk (ASCP) . 02 Note: Note 03 The Pap [...] High,A-Abnormal,AA-Critical Abnormal Performed at: 02 KWCYT [facility] Cyto Hist[facility] [address] [place] [address] Alfonso Kerns MD, 03 WB [facility] [address] [address] Saundra Crocker MD, BRUSH-SPATULA CERVIX ENDOCERVIX CLINSt. [facility] Vital Signs Date TimeVital SignValuePerforming HobqazymaAtxrildm61-57-1498 09:47-0400Body mcifve933.88 cmTri[facility]05-30-2024 09:47-0400Body mass index (BMI) [Ratio]27.6 kg/r0FohnigirzTrihealth Good Samaritan Hospital05-30-2024 09:470400Body xcaypr34.58 kgTrihealth [facility] Samaritan Hospital05-30-2024 09:47-0400Diastolic blood odzwgruq91 mm[Hg][facility] 09-30-2023 09:47-0400Heart rate78 /[facility] 09-30-2023 09:47-0400Respiratory rate12 /[facility] 09-30-2023 09:47-0400Systolic blood dowexmvr904 mm[Hg][facility]01-30-2024 13:34-0500Body suscwo40.45 kgCorey Fuad DO Work Phone: [facility] Xlumgbodub34-56-2907 13:34-0500Diastolic blood mm[Hg]Brennan Fuad DO Work Phone: [facility] Imchlbplkv54-74-9059 13:34-0500Systolic blood fwuqfzws077 mm[Hg]Brennan Fuad DO Work Phone: [facility] Pszzfkcvic87-70-1579 14:00-0400Body .8 cmShayne Juarez Other [facility] Other 10-20-2022 14:00-0400Body mass index (BMI) [Ratio] 29.97 kg/r1OyljueShayne Juarez Other noXtract Other 10-20-2022 14:00-0400Body eznjlr67.76 kgShayne Juarez Other noXtract Other 10-20-2022 14:00-0400Diastolic blood cojmotuy86 mm[Hg] Shayne Juarez Other noXtract Other 10-20-2022 14:00-0400Respiratory rate18 /Denise Juarez Other [facility] Other 10-20-2022 14:00-2454IhX9% (BldA) [Mass fraction]98 % Shayne Juarez Other noOlocode [employer] Other 10-20-2022 14:00-0400Systolic blood kicquhrp927 mm[Hg] Shayne Juarez Other [employer] Other Encounters Encounter DateEncounter TypeCare ProviderFacilityStart: 11-29-2024 End: 45-76-0031Aubetrrdp Result EncounterCorey Fuad DO Work Phone: noms External Department UnsolicitedStart: 11-29-2024 End: 87-74-4819Uapitcqfo Result EncounterCorey Fuad DO Work Phone: noms External Department UnsolicitedStart: 09-30-2023 End: 16-33-4898laravkpngfScchixsje [facility] Work Phone: Start: 09-30-2023 End: 25-89-1514Imtthemmn for general adult medical examination without abnormal findingsGuernsey Memorial Hospitaltart: 09-30-2023 End: 41-36-5778Kayllxh encounter procedureUnc Health Blue [facility] Physician GroupHonorHealth [facility] Medical [facility] Work Phone: Start: 06-01-2023 End: 57-36-7735gtyykqiefsJULFR FAZIONot AvailableStart: 77-87-1153Gqpgjbtdt Result EncounterCorey Fuad DO Work Phone: noms External Department UnsolicitedStart: 06-01-2023 Clinisync Result EncounterCorey Fuad DO Work Phone: noms External Department UnsolicitedStart: 06-01-2023 End: 25-09-6512Flueslg encounter procedureCorey Fuad DO Work Phone: noms HealthcareStart: 06-01-2023 End: 76-63-8928Ahinzrlo preventive med est patient 18-39 yrsCorey Fuad DO Work Phone: noms BCP OBComment on above:Well woman exam with routine gynecological examStart: 03-23-2022 End: 71-25-9050fqqxzvoqhbNkme Fitt Other [facility] Other Start: 16-66-0797Wtegvjfsu encounterDawn FitGood Samaritan Hospital ClinicStart: 03-03-2022 End: 23-65-0804yuofimxhdtLbqw Fitt Other [facility] Other Start: 37-48-1972Nziiizhda encounterDawn [facility] ClinicStart: 02-19-2022 End: 60-28-7631gtqrtyiqwnMouatp L VisualShareFeedjitcox branson [employer] Other Start: 34-78-5027XgtcydnixLara Germian [facility] ClinicStart: 02-17-2022 End: 38-28-8971fqifhapcwyZwly Fitt Other [employer] Other Start: 89-79-8470Rwnnatgsq by computer linkPretty Coleman [facility] ClinicStart: 10-30-2021 End: 20-67-0517onoyrjqyrgVL KLAUS BALLFacility:H1 Procedures DateProcedureProcedure DetailPerforming ClinicianStart: 37-87-2653OK TOMOSYNTHESIS SCREENING BICorey Fuad DO Work Phone: Start: 16-48-6119MlamyslfruqUxciv Fuad DO Work Phone: Start: 81-91-1434ZJV,APTIMA HPV,AGE GDLNCorey Fuad DO Work Phone: Plan of Treatment DateCare ActivityDetailAuthorStart: 05-64-5578Zivlojezi vaccinationInfluenza Vaccine (#1)NOMS HealthcareStart: 50-91-5707Sgutwaudu for malignant neoplasm of breastMammogramNOMS HealthcareStart: 10-46-7312Eyrdlxnkx vaccinationInfluenza Vaccine (#1)[facility] HealthcareStart: 30-43-0024Mveugavbq for malignant neoplasm of cervixNOIA HealthcareStart: 27-06-1824Bvzpqyxuy for malignant neoplasm of cervix Pap SmearNOIA HealthcareComprehensive metabolic 2000 panel - Serum or Plasma [facility] HospitalCytology Cervical or vaginal smear or scraping studyPap Smear Pathology and Cytology Routine Well woman exam with routine gynecological exam Ordered: 06/01/2023[facility] Healthcare Work Phone: comment on above:Ordered: 06/01/2023Human papilloma virus DNA [Presence] in Unspecified specimen by Probe with amplificationHPV DNA probe, amplified Microbiology Routine Well woman exam with routine gynecological exam Ordered: 06/01/2023[facility] HealthcareComment on above:Ordered: 06/01/2023MG Breast [facility] Immunizations Immunization DateImmunizationNotesCare EazwtafjKkeipmsd53-68-1547brsagwpjx virus vaccine, unspecified formulationCorey Fuad DO Work Phone: [facility] Payers DatePayer CategoryPayerPolicy [id number] Medical [facility] [id number] BCBS [id number] 2022-Present [phone] [address] [place] [id number] [id number] [id number]by-[id number] [id number] Social History DateTypeDetailFacilityUnknown if ever smokedO'Brien [employer] Other Sex Assigned At [facility] Hospitalex Assigned At WITOIXtract Other Tobacco smoking status NHISTobacco smoking consumption unknownNOIA HealthcareStart: 82-43-1960Sub Assigned At BirthFePenikese Island Leper Hospital HealthcareStart: 86-00-7666Iiribo identityIdentifies as female gender (finding) [facility] HealthcareStart: 65-65-0385Naxvae orientationHeterosexual (finding)[facility] History of Present illness Narrative 06-01-2023 Note Date & ZxenFytrIoixwlur51-38-4336 History of Present illness Narrative* Rosy Santana, QUILL REAMER - 06/01/2023 1:00 PM EST Reason for Appointment: Patient ID: Rosina Enriquez is a 37 y.o. female who [...] nursing note reviewed. Exam conducted with a accounts receivable supervisor present. Vitals: There is no height or [...] of: Brennan Merida DO documented in this encounterNOCass Medical Center Evaluation note 02-19-2022 Note Date & BgliHsvuIogdndva14-40-9561 Evaluation note* Encounter Date Diagnosis Assessment Notes Treatment Notes Treatment Clinical Notes Jan, Abnormal weight gain (ICD-10 - R 63.5) Jan,GERD (gastroesophageal reflux disease) (ICD-10 - K21.9) Jan,leep difficulties (ICD-10 - G47.9) [facility] Other Evaluation note Note Date & TypeNoteFacilityEvaluation noteNo InformationNortGeisinger [facility] [email or web address] Other Evaluation note Note Date & TypeNoteFacilityEvaluation note* Diagnosis Well woman exam with routine gynecological exam Routine gynecological examination documented in this encounter [facility] Evaluation note Note Date & TypeNoteFacilityEvaluation note* Diagnosis Onset Date Resolution Status Bruxism, sleep-related acuteOverweightacuteScreening mammogram for breast canceracuteWellness examinationnoneactive [facility] Work Phone: History general Narrative - Reported Note Date & TypeNoteFacilityHistory general Narrative - Reported* Type Description Date Surgical History C section x3 Hospitalization Historysee above [facility] [email or web address] Other Summary Purpose Family History Relationship Condition Age at Onset Recorded Date/T eleanor father Diabetes mellitus Unknown HypertensionUnknownNot SpecifiedHypertensionUnknown Advance Directives Advance Directive Response Recorded Date/ Time Advance Directives No September 06, 2023 1:26pm Chief Complaint and Reason for Visit Chief Complaint left ear jaw pain Reason for Visit Bruxism, sleep-relat ed Overweight Screening mammogram for breast cancer Wellness examination Additional Source Comments REASON FOR VISIT (unrecogniz ed section and content) ReasonCommentsGynecologic Exam INFORMATION SOURCE (unrecogn ized section and content) DATE CREATED AUTHOR 03/09/2022 [facility] DATE CREATED AUTHOR AUTHOR'S ORGANIZ ATION 03/13/2022 [facility] DATE CREATED AUTHOR AUTHOR'S ORGANIZ ATION 06/02/2023 [facility] EPIC Care Teams (unrecognized sec tion and content) Team MemberRelationshipSpecialtyStart DateEnd Date Sol Briseno MD [address] [place] [address] PCP - GeneralFamily Medicine06/01/23Team MemberRelationshipSpecialtyStart DateEnd Date Sol Briseno MD [address] [place] [phone] PCP - GeneralFamily Medicine06/01/23 Team Status: Active Member Role Status Dates Klaus Wick DO Primary Care Provider Active Team Status: Inactive Member Role Status Dates Klaus Wick DO Primary Care Provide r, Attending Provider Active Start: September 30, 2023 End: September 30, 2023Team MemberRelationshipSpecialtyStart DateEnd Date Sol Briseno MD PCP - GeneralFaflly Medicine06/01/23 Goals (unrecognized section and content) Goals may [...] BE BASED ON THE PRIMARY CLINICAL RECORDS. [facility]. provides no warranty or guarantee of the accuracy or completeness of information in this document.
--- OUTSIDE RECORDS SUMMARY | 2025-03-01 08:45 | XMS_ITS | Clinical Summary ---
Author Organization [facility] Address [address] [place] [address] Care Team Providers Care Stock Feeder Name Role Phone Sol Briseno MD Primary Care Provider [phone] Allergies No known active allergies Medications MedicationSigDispense QuantityRefillsLast FilledStart DateEnd DateStatus metFORMIN XR (Glucophage-XR) 500 MG 24 hr tablet Indications:Metabolic syndromeTAKE 1 TABLET BY MOUTH EVERY DAY FOR 30 DAYS 90 tablet 3Active phentermine (Adipex-P) 37.5 MG tablet Indications:Metabolic syndrome,Encounter for weight managementTake 1 tablet (37.5 mg) by mouth in the morning. Take before meals. 30 tablet 05/25/2023ctive Resolved Problems ProblemNoted DateDiagnosed DateResolved DateMetabolic etmluhiw63/23/2024 05/25/2023 Encounters DateTypeDepartmentCare PttkAghkmynwtao16/30/2025linisync Result Encounter [facility] External Department Unsolicited Brennan Merida DO from Last 3 Months Social History Tobacco UseTypesPacks/DayYears UsedDateSmoking Tobacco: Never Assessed CommentsUnknownSex and Gender InformationValueDate RecordedSex Assigned at Bymujt3905/31/2023 10:43 PM ESTLegal UytUetlew90/15/2023 6:54 PM EDTGender OuormnwxBixgjv93/29/2024 10:43 PM ESTSexual MhhgkmedvasFoahobfr98/29/2024 10:43 PM EST Last Filed Vital Signs Vital SignReadingTime TakenCommentsBlood Hdngzjxr707/68006/01/2023 1:34 PM EST Pulse--Temperature--Respiratory Rate--Oxygen Saturation--Inhaled Oxygen Concentration--Ymontg56.5 kg (195 lb)06/01/2023 1:34 PM ESTHeight--Body Mass Index-- Plan of Treatment Not on file Procedures Procedure NamePriorityDate/TimeAssociated DiagnosisCommentsMM TOMOSYNTHESIS SCREENING BI11/29/2024 4:17 PM EDT from Last 3 Months Results * MM TOMOSYNTHESIS SCREENING BI (11/29/2024 4:17 PM EDT)Anatomical Region LateralityModalityOtherSpecimen (Source)Anatomical Location / Laterality Collection Method / VolumeCollection TimeReceived Time11/29/2024 4:17 PM EDT [facility] 11/29/2024 4:18 PM EDT [facility] ?[address] ? [place], [facility] ? Mammography Report ? Signed ? Patient: MARGE ENRIQUEZ ?MR#: [id number] ?? : 1985 ?Acct:[id number] ?? Age/Sex: 39 / F ?ADM Date: 11/29/ ?? Loc: MAMMO ? Attending Dr: Bernnan Merida D.O. ? Ordering Physician: Brennan Merida D.O. ?Results: ? Date of Service: 11/29/ ?Follow Up: ? Procedure(s): MM tomosynthesis screening BI ?? Accession Number(s): [id number] ? cc: Klaus Wick.Eulalia.; Brennan Merida D.O. ? Patient Name: ? MARGE ENRIQUEZ ? MR#: [id number] ? : 1985 ? Exam Date: 11/29/2024 ?? Ordering Doctor: DR BRENNAN MERIDA . ? RADIOLOGY REPORT ? PROCEDURE: ? MM TOMOSYNTHESIS SCREENING BI ? COMPARISON: ? MM TOMOSYNTHESIS SCREENING BI, 10/20/2023. ??MG MAMM SCREEN ORLY ?? W CAD, 03/09/2019. ? INDICATIONS: ? screening for malignant neoplasm of breast ? Calculator Name ? NCI Breast Cancer Risk Assessment Tool ?? 5 Year Breast Cancer Risk ? Not Reported. ?? Lifetime Breast Cancer Risk ? Not Reported. ?? Personal Breast Cancer ?No ?? Personal Ovarian Cancer ? No ?? Treatments ? None ?? Family Cancers ? None ? LOCATION: ? [facility] ? BREAST COMPOSITION: ? The breasts are heterogeneously dense, which may ?? obscure small masses. ? FINDINGS: ? DIAGNOSTIC CATEGORY 1--NEGATIVE. ? RIGHT BREAST: ??No significant suspicious finding. ? LEFT BREAST: ??No significant suspicious finding. ? RECOMMENDATIONS: ? ROUTINE MAMMOGRAM AND CLINICAL EVALUATION IN 12 MONTHS. ? PLEASE NOTE: ??A NORMAL MAMMOGRAM DOES NOT EXCLUDE THE POSSIBILITY OF BREAST ?? CANCER. ??A CLINICALLY SUSPICIOUS PALPABLE LUMP SHOULD BE BIOPSIED. ? Dictated by: Antolin Navarro DO on 11/29/2024 at 16:05 ? Approved by: Antolin Navarro DO on 11/29/2024 at 16:16 ? Dictated By: ?Antolin Navarro M.D. ? Signed By: ?11/29/24 1618 ? DD/ 1617 ? TD/TT: ? Manager Water: Procedure Note Radiology, Radiologist, MD - 11/29/[address] [address] Mammography Report Signed Patient: MARGE ENRIQUEZ [facility]#: [id number] : 1985Acct:[id number] Age/Sex: 39 / FADM Date: 11/29/24 Loc: MAMMO Attending Dr: Brennan Merida D.O. Ordering Physician: Brennan Merida D.O.Results: Date of Service: 11/29/24Follow Up: Procedure(s): MM tomosynthesis screening BI Accession Number(s): [id number] cc: Klaus Wick D.O.; Brennan Merida D.O. Patient Name: MARGE ENRIQUEZ MR#: [id number] : 1985 Exam Date: 11/29/2024 Ordering Doctor: DR BRENNAN MERIDA . RADIOLOGY REPORT PROCEDURE: MM TOMOSYNTHESIS SCREENING BI COMPARISON: MM TOMOSYNTHESIS SCREENING BI, 10/20/2023. MG MAMM SCREENBIL W CAD, 03/09/2019. INDICATIONS: screening for malignant neoplasm of breast Calculator Name NCI Breast Cancer Risk Assessment Tool 5 Year Breast Cancer Risk Not Reported. Lifetime Breast Cancer Risk Not Reported. Personal Breast Cancer No Personal Ovarian Cancer No Treatments None Family Cancers None LOCATION: [facility] BREAST COMPOSITION: The breasts are heterogeneously dense, which may obscure small masses. FINDINGS: DIAGNOSTIC CATEGORY 1--NEGATIVE. RIGHT BREAST: No significant suspicious finding. LEFT BREAST: No significant suspicious finding. RECOMMENDATIONS: ROUTINE MAMMOGRAM AND CLINICAL EVALUATION IN 12 MONTHS. PLEASE NOTE: A NORMAL MAMMOGRAM DOES NOT EXCLUDE THE POSSIBILITY OFBREAST CANCER. A CLINICALLY SUSPICIOUS PALPABLE LUMP SHOULD BE BIOPSIED. Dictated by: Antolin Navarro DO on 11/29/2024 at 16:05 Approved by: Antolin Navarro DO on 11/29/2024 at 16:16 Dictated By: Antolin Navarro M.D. Signed By:11/29/24 1618 DD/ 16 TD/TT: Manager Water: Authorizing ProviderResult TypeResult StatusCorey Fuad DOCLINISYNC IMAGINGFinal Result from Last 3 Months Insurance Care Teams Team MemberRelationshipSpecialtyStart DateEnd Date Sol Briseno MD PCP - [facility] Medicine06/01/23
--- OUTSIDE RECORDS SUMMARY | 2025-03-01 08:45 | XMS_ITS | Clinical Summary ---
Author Organization [email or web address] [facility] tem Address [id number] [address] [place] [address] Care Team Providers Care Pulmonology Physician Name Role Phone Klaus Wick DO Primary Care Provider [phone] Allergies No known active allergies Medications MedicationSigDispense QuantityRefillsLast FilledStart DateEnd DateStatus Lactobac no.41/Bifidobact no.7 (PROBIOTIC-10 ORAL) Take by mouth daily.Active herbal complex no.205 (TOTAL BODY CLEANSE ORAL) Take by mouth as needed.Active phentermine (ADIPEX-P) 37.5 mg tablet Take 37.5 mg by mouth every morning before breakfast.Active Active Problems No known active problems Family History Medical HistoryRelationNameCommentsDiabetesFatherHypertensionFatherTesticular cancerMaternal GrandfatherHypertensionMotherRelationNameStatusCommentsFather AliveMaternal GrandfatherAliveMotherAlive Social History Tobacco UseTypesPacks/DayYears UsedDateSmoking Tobacco: NeverSmokeless Tobacco: NeverAlcohol UseStandard Drinks/WeekCommentsYes0 (1 standard drink = 0.6 oz pure alcohol)SOCIALChildcareAnswerDate BnzcbmkwWjcdcalqkTtpeclg33/12/2019Employment AnswerDate ZzcredegPpsrqwnurwGkzxryj13/12/2019Purpose - LifeAnswerDate Recorded Purpose and direction in titkGtxmklz14/11/2021CommentsUnknownSex and Gender InformationValueDate RecordedSex Assigned at BirthNot on fileLegal Sex Jbzbtr4512/06/2014 11:23 AM EDTGender IdentityNot on fileSexual OrientationNot on file Last Filed Vital Signs Vital SignReadingTime TakenCommentsBlood Yxtejudl067/8411 8:51 AM EST Pulse--Temperature--Respiratory Rate--Oxygen Saturation--Inhaled Oxygen Concentration--Debnqb93.6 kg (202 lb)04/01/2018 8:51 AM QWGQuryhl532.9 cm (6') 04/01/2018 8:51 AM ESTBody Mass Index27. 8:51 AM EST Plan of Treatment Health MaintenanceDue DateLast DoneCommentsDepression Jhtbawpni36/25/1996Tobacco Rsdojplww43/25/1996Adult BMI Wcgckbiox34/25/2002DTaP,Tdap and Td Vaccines (1 - Tdap)09/24/2002Pap Smear09/24/2004Influenza Fdqayqi2701/01/2025 Medical Devices Not on file Insurance Care Teams Team MemberRelationshipSpecialtyStart DateEnd Date Klaus Wick DO [address] [place] [address] PCP - Fheokni90/10/18
--- OUTSIDE RECORDS SUMMARY | 2025-03-01 08:46 | XMS_ITS | Patient Health Record ---
Author Organization [facility] Address [address] [place] [address] Care Team Providers Care Admissions Supervisor Name Role Phone Albaro Wilson Unavailable [phone] Allergies No Known Allergies Reason For Referral No Information Medications Medication SIG (Take, Route, Frequency, Duration) Notes Start Date End Date Status Tylenol ActiveZyrTECActiveMotrin IBActive Social History Tobacco Use: Social History Observation Description Date Details (start date - stop date) Never Smoker NA - NA AUDIT-C (Standard) Question Answer Notes Did you have a drink containing alcohol in the p ast year? Yes How often did you have a drink containing alcohol in the past year?Monthly or less (1 point)How many drinks did you have on a typical day when you were drinking in the past year?1 or 2 drinks (0 point)How often did you have six or more drinks on one occasion in the past year?Never (0 point)Points1 InterpretationNegativeTobacco Control (Standard) Question Answer Notes Tobacco use: Nonsmoker Vital Signs Height 6'0 in 09/11/2024 Cjkgjo067 lbs09/11/2024BMI22.38009/11/2024 Encounters Encounter Location Date Provider Diagnosis [facility] Office [address] [place] [address] [address] [place] [address] 09/11/2024 Albaro Wilson 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 She will continue symptomatic treatment with rntq-skh-bqrvrem NSAIDs. She will follow-up here on an as-needed basis. Import medication Plan Of Treatment Pending Test Test Name Order Date SCC- HIP W/ PELVIS, LEFT [id number] 5 Insurance Providers Payer Name Payer Address Payer Phone Subscriber Number Group Number Insured Name Patient Relationship to Insured Coverage Start Date Coverage End Date [facility] [address] [place] [address] [id number] Kelsey LAWRENCE - patient is the [id number] 2024 Medical (General) History Medical History History ICD Code Asthma/COPD: yes Healthcare workerSurgical History Surgery Date(Month/Year) Colonoscopy 03/2019 C section x 3 07/2007, 04/2010, 07/02 016
[2025-03-01 09:16] LABS: Alanine Aminotransferase 22 U/L (14-59); Albumin Globulin Ratio 1.1; Albumin Level 3.7 g/dL (3.4-5.0); Alkaline Phosphatase 46 U/L (46-116); Anion Gap 12.5; Aspartate Amino Transferase 17 U/L (15-37); Blood Urea Nitrogen 10.0 mg/dL (7.0-18.0); Calcium 8.9 mg/dL (8.5-10.1); Carbon Dioxide 26.5 mmol/L (21.0-32.0); Chloride 105 mmol/L (98-107); Cholesterol 129 mg/dL (<=200); Estimated GFR (African America >60 (>=60 mL/min/1.73m^2); Estimated GFR (Non-African Ame >60 (>=60 mL/min/1.73m^2); Globulin 3.4 g/dL; Glucose 82 mg/dL (74-106); HDL Cholesterol 91 mg/dL (40-60); Potassium 4.0 mmol/L (3.5-5.1); Sodium 140 mmol/L (136-145); Total Protein 7.1 g/dL (6.4-8.2); Triglycerides 39 mg/dL (<=150); VLDL CHOLESTEROL 7.8 mg/dL
[2025-03-01 09:18] LABS: Hematocrit 40.6 % (36.0-48.0); Hemoglobin 13.5 g/dL (12.0-16.0); Immature Granulocytes Abs Auto 0.01 10^3/uL (0.00-0.03); Immature Granulocytes Pct Auto 0.2 % (0.0-0.5); Lymphocytes Absolute Auto 1.2 10^3/uL (1.2-3.8); Mean Corpuscular HGB Conc 33.3 g/dL (29.9-35.2); Mean Corpuscular Hemoglobin 30.5 pg (26.7-34.0); Mean Corpuscular Volume 91.9 fL (81.0-99.0); Platelet Count 216 10^3/uL (150-450); Red Blood Count 4.42 10^6/uL (4.20-5.40); White Blood Count 4.2 10^3/uL (4.0-11.0)
== END 2025-03-01 08:39 | disposition home or self-care (01) ==
LOC: LAB 08:38
PROVIDERS: PCP Internal Medicine; Visit Provider Family Medicine
DX: Z00.00 Encounter for general adult medical examination without abnormal findings (principal)
CPT/HCPCS: 36415; 80053; 80061; 85025